=== PATIENT | male | born 1960 | race Caucasian/White ===

== ENCOUNTER 2017-12-07 17:20 | Inpatient (IN) | payer OTHER ==
[~2017-12-07] VITALS: Ht 180.3 cm; Wt 103.0 kg
[~2017-12-07 17:20] MED LIST: K-DUR20 ME2 PO; Z.0.ACCUPRIL40 MG PO; Z.0.LANTUS100 UNIT/1 SQ; Z.0.LASIX40 MG PO; Z.0.METFORMIN HCL850 PO; Z.0.NORVASC5 MG PO; Z.0.VICTOZA 2-0.6 MG SQ
[2017-12-07 19:13] LABS: BASOPHILS # (AUTO) 0.1 (0.0-0.1); BASOPHILS % 1.1 % (0.0-1.0); EOSINOPHILS # (AUTO) 0.1 (0.0-0.4); EOSINOPHILS % 1.5 % (0.0-6.0); HEMOGLOBIN 16.5 g/dL (14.0-18.0); LYMPHOCYTES % 18.3 % (18.0-39.1); MEAN CORPUSCULAR HEMOGLOBIN 31.7 pg (28-32); MEAN CORPUSCULAR HGB CONC 35.1 g/dL (31-35); MEAN CORPUSCULAR VOLUME 90.4 fL (81-99); MONOCYTES # (AUTO) 0.6 (0.2-0.8); MONOCYTES % 10.4 % (4.4-11.3); NEUTROPHILS # (AUTO) 3.7 (2.1-6.9); NEUTROPHILS % 68.3 % (38.7-80.0); PLATELET COUNT 186 x10e3/uL (140-360); RED CELL DISTRIBUTION WIDTH 13.2 % (11.7-14.4)
[2017-12-07 19:26] LABS: ALANINE AMINOTRANSFERASE 99 IU/L (0-55); ALBUMIN 3.6 g/dL (3.5-5.0); ALKALINE PHOSPHATASE 62 IU/L (40-150); BLOOD UREA NITROGEN 8 mg/dL (7-26); BUN/CREATININE RATIO 7 (6-25); CALCIUM 9.1 mg/dL (8.4-10.2); CARBON DIOXIDE 25 mmol/L (22-29); CHLORIDE 95 mmol/L (98-107); CREATININE, SERUM 1.07 mg/dL (0.72-1.25); EST GLOMERULAR FILTRATION RATE > 60 ML/MIN (60-); GLUCOSE 259 mg/dL (74-118); SODIUM 129 mmol/L (136-145)
--- NOTE | 2017-12-07 20:46 | Diagnostic Imaging Report ---
FOOT RIGHT COMPLETE - 3 views HISTORY: Pain. Bilaterally infected right. COMPARISON: None available. FINDINGS: Bones: No acute displaced fracture. Osseous alignment is within normal limits. Plantar calcaneal enthesophyte. Erosive changes of the great toe phalanx. Joints: The joint spaces are well-maintained. Soft tissues: Soft tissue defect in the great toe. IMPRESSION: Erosive changes of the great toe phalanx with overlying soft tissue defect, consistent with osteomyelitis. Signed by: Dr. Dustin Sahu M.D. on 12/07/2017 8:42 PM
[2017-12-07] MEDS ORDERED: CHLORDIAZEPOXIDE HCL 25 MG CAP ONE (22:37)
[2017-12-07] MEDS ORDERED: CHLORDIAZEPOXIDE HCL 25 MG CAP PO ONE (22:45)
[2017-12-07] MEDS ORDERED: PIPER-TAZ 3.375 GM 50 ML IV STA (22:46)
[2017-12-07] MEDS: PIPER-TAZ 3.375 GM 50 ML IV SCH (22:46)
[2017-12-07 22:51] LABS: INR 1.16; PROTHROMBIN TIME 13.9 seconds (11.9-14.5)
[2017-12-07 22:52] LABS: PARTIAL THROMBOPLASTIN TIME 28.1 seconds (23.8-35.5)
[2017-12-07] MEDS ORDERED: ONDANSETRON HCL INJ 2 MG/ML VIAL IV PRN (23:00)
[2017-12-07] MEDS ORDERED: SODIUM CHLORIDE FLUSH 10 ML SYR INJ PRN (23:00)
[2017-12-07] MEDS ORDERED: DEXTROSE 50% SYRINGE 50 ML IV PRN (23:00)
[2017-12-07 23:35] VITALS: BP 154/94
[2017-12-07] MEDS ORDERED: SODIUM CHLORIDE 0.9% 250ML 250 ML ONE (23:52)
[2017-12-08] VITALS (8 sets, daily range): BP systolic 105–154; BP diastolic 72–94
[2017-12-08] MEDS: VANCOMYCIN 1GM/NS 250 ML 250 ML IV SCH ×3 (00:20→22:48)
[2017-12-08] MEDS: PIPER-TAZ 3.375 GM 50 ML IV SCH ×3 (05:48→22:02)
[2017-12-08] MEDS: CHLORDIAZEPOXIDE HCL 25 MG CAP PO SCH ×4 (05:48→17:06)
[2017-12-08 06:03] LABS: BASOPHILS % 0.8 % (0.0-1.0); EOSINOPHILS # (AUTO) 0.1 (0.0-0.4); EOSINOPHILS % 2.7 % (0.0-6.0); HEMATOCRIT 44.7 % (38.2-49.6); HEMOGLOBIN 15.4 g/dL (14.0-18.0); LYMPHOCYTES % 19.3 % (18.0-39.1); MEAN CORPUSCULAR HEMOGLOBIN 31.5 pg (28-32); MEAN CORPUSCULAR HGB CONC 34.5 g/dL (31-35); MEAN CORPUSCULAR VOLUME 91.4 fL (81-99); MONOCYTES # (AUTO) 0.5 (0.2-0.8); MONOCYTES % 9.3 % (4.4-11.3); NEUTROPHILS # (AUTO) 3.5 (2.1-6.9); NEUTROPHILS % 67.5 % (38.7-80.0); PLATELET COUNT 172 x10e3/uL (140-360); RED BLOOD COUNT 4.89 x10e6/uL (4.3-5.7); RED CELL DISTRIBUTION WIDTH 13.4 % (11.7-14.4)
[2017-12-08 06:28] LABS: ALANINE AMINOTRANSFERASE 80 IU/L (0-55); ALBUMIN 3.1 g/dL (3.5-5.0); ALBUMIN/GLOBULIN RATIO 0.9 (0.8-2.0); ALKALINE PHOSPHATASE 59 IU/L (40-150); ANION GAP 11.6 mmol/L (8-16); BLOOD UREA NITROGEN 8 mg/dL (7-26); BUN/CREATININE RATIO 8 (6-25); CALCIUM 8.6 mg/dL (8.4-10.2); CARBON DIOXIDE 25 mmol/L (22-29); CHLORIDE 99 mmol/L (98-107); CREATININE, SERUM 0.95 mg/dL (0.72-1.25); EST GLOMERULAR FILTRATION RATE > 60 ML/MIN (60-); GLUCOSE 169 mg/dL (74-118); POTASSIUM 3.6 mmol/L (3.5-5.1); SODIUM 132 mmol/L (136-145)
[2017-12-08] MEDS ORDERED: INSULIN REGULAR, HUMAN 100 UNIT/1 ML 3ML VIAL SQ SCH (07:30)
[2017-12-08] MEDS: NICOTINE 21 MG/EA PATCH TOP SCH (08:17)
[2017-12-08] MEDS ORDERED: POTASSIUM CHLORIDE 20 MEQ TAB CR PO STA (10:14)
[2017-12-08] MEDS ORDERED: DEXTROSE 50% SYRINGE 50 ML IV PRN (10:15)
[2017-12-08] MEDS ORDERED: SODIUM CHLORIDE 452MG TAB PO ONE (10:30)
--- NOTE | 2017-12-08 11:25 | History and Physical ---
CLINICAL HISTORY: This is a 57-year-old white man known to me from previous evaluation, admitted via the emergency room because of right 1st toe osteomyelitis and cellulitis. This patient is known to have coronary artery disease, status post previous anterior wall myocardial infarction. Additionally, he has alcoholic cardiomyopathy. At the time of cardiac catheterization in 2010, his mid LAD was occluded, diagonal had 80% stenosis, circumflex had sequential 60 and 80% stenosis, OM had 40% stenosis. There were some plaques in the right coronary artery which were crooked and small. He had 3+ mitral regurgitation. Subsequently echocardiogram elsewhere apparently showed ejection fraction had dropped to 20%. Nevertheless, the patient has gone off all his medications, Lasix, metoprolol, and lisinopril apparently because of low blood pressure. He was taking digoxin instead. However, according to him, he has not been taking any medications for approximately 2 months including his Glucophage. He does use this insulin long acting glargine-based 25 units twice a day. He is to take 80 but apparently has decreased his intake. He is a heavy drinker and continues to drink. He also has been smoking for the past 2 years for a total of 17 years of smoking after quitting for a while. He has history of hypertension, hyperlipidemia, but he does not take any medications now since his blood pressure is low. 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 His had severe Alzheimer's. He smokes and drinks. FAMILY HISTORY: Father of myocardial infarction, age 43. Mother had Alzheimer's. Sister in her sleep from sleep apnea or morbid obesity. Another sister is alive with diabetes. REVIEW OF SYSTEMS: Noncontributory. PHYSICAL EXAMINATION GENERAL: He is alert and coherent. VITAL SIGNS: Stable. CARDIAC: Jugular veins are not distended. S1 and S2 were regular. There is no appreciable murmur. LUNGS: Clear. ABDOMEN: Soft. Bowel sounds are present. EXTREMITIES: No cyanosis, clubbing, or edema. He has a nonhealing chronic wound in his right toe, apparently has been ongoing for 1 month with surrounding cellulitis. LABORATORY STUDIES: The x-ray of the foot showed osteomyelitis. IMPRESSIONS 1. Osteomyelitis of the right 1st toe with soft tissue breakdown for approximately a month with surrounding cellulitis. 2. Compensated congestive heart failure, ejection fraction in the range of 20%. In 2011, it was in the range of 35 to 40%. 3. Ischemic and alcoholic cardiomyopathy. 4. Coronary artery disease status post occluded mid left anterior descending artery with additional disease in the distal circumflex as well as diagonal artery. Not evaluated invasively since 2010. 5. Moderately severe mitral regurgitation. 6. Diabetes. 7. Hyperlipidemia. 8. Hypotension with history of hypertension. 9. Noncompliance with medications. 10. Alcoholism with elevated liver function but reportedly liver biopsy was negative for cirrhosis. 11. Hyponatremia related to alcohol abuse. 12. The patient states that he has never had alcohol withdrawal symptoms when he stopped drinking in the past. RECOMMENDATIONS 1. Repeat echocardiogram. If there is evidence of intracardiac thrombus or even if there is not, we will still consider anticoagulation. However, the patient is unlikely to comply and his liver problems does not help. In the past, there was concern about apical mural thrombus. Anticoagulation, however, in this patient may be difficult due to his alcoholism and liver condition. 2. He will require infectious disease and podiatry consultation. The risks from the cardiac standpoint for the planned toe amputation is quite high due to his severe cardiomyopathy. Nevertheless, he appears to be quite compensated and still working. The risks from a cardiac standpoint have been explained to him and understood. All questions were answered. Most likely, we will proceed with toe amputation. Job#: [id number] CF cc:Renan DE LA VEGA DPM
[2017-12-08] MEDS: INSULIN LISPRO 100 UNIT/1 ML 3ML VIAL SQ SCH ×3 (12:23→22:52)
--- NOTE | 2017-12-08 15:42 | Consultation ---
DATE OF CONSULTATION: December 08, 2017 PODIATRY SURGERY CONSULTATION REASON FOR CONSULTATION: Osteomyelitis right hallux. I am covering for Dr. Chandler Melendez. HISTORY OF PRESENT ILLNESS: Patient has been diabetic for many years. He says he has been noncompliant. He has been having daily drinks; so, it has really increased his hemoglobin A1c. He thinks it is probably running at around a 10. He says Dr. Moreland is his cage loader and Dr. Hwang his PCP. He says he has not seen Dr. Hwang in a long time. He usually follows up with Dr. Moreland, but he did miss the last appointment. Patient presented through the emergency room with an infected right hallux. ALLERGIES: NO KNOWN ALLERGIES. MEDICATION: Please refer to MAR. Of interest to this consult are Zosyn and vancomycin. REVIEW OF SYSTEMS: Noncontributory except for a full-thickness ulcer, bone exposed, distal phalanx to the right hallux. LOWER EXTREMITY PHYSICAL EXAMINATION: Pedal pulses are palpable. Capillary filling time is delayed. There is some pedal hair growth. It is scant. Skin is atrophic. Intrinsic-minus type of foot. Full-thickness ulcer to the distal aspect of the right foot with distal phalanx exposed. There are localized erythema and edema. No streaking erythema, no erythema, no ascending lymphangitis. At this point the base is 100% fibrotic. The bone is exposed. The wound appears soft to touch. There is malodor to the area. Protective threshold is absent. X-RAY 3 VIEWS: Erosive changes of the great toe phalanx with overlying soft-tissue defect consistent with osteomyelitis. ASSESSMENT 1. Ulcer grade 3, right hallux. 2. Diabetes with neuropathy. 3. Peripheral vascular disease. 4. History of noncompliance. PLAN: At this point I discussed with patient that he needs an amputation of the right distal phalanx of the hallux. He agrees with this. I discussed with him possible amputation on morning. He will be nonweightbearing. I discussed with him that normal healing times could take 4 to 6 weeks for it to heal. He has to be compliant with his diabetes. He says he is going to stop drinking now. He is going to comply with getting his diabetes under control. I discussed no pressure to the area and compliance with antibiotics. I am tentatively going to put him for surgery for in the morning. He will be n.p.o. on Thursday night. Job#: [id number] EV
--- NOTE | 2017-12-08 16:17 | Diagnostic Imaging Report ---
PROCEDURE: Frontal and lateral views of the chest. COMPARISON: Patients [facility], CT, CTA CHEST W, 09/07/2011, 5:15. INDICATIONS: PREOP AMPUTATION OF 1ST DIGIT TOE FINDINGS: Lines/tubes: None. Lungs: The lungs are mildly hypoinflated. Linear opacity in the right middle lobe likely reflect subsegmental atelectasis. No consolidation or pulmonary edema. Pleura: There is no pleural effusion or pneumothorax. Heart and mediastinum: Stable mild cardiomegaly. Pulmonary vasculature is normal. Bones: No acute bony abnormality. Degenerative changes in the thoracic spine. IMPRESSION: 1. mild cardiomegaly and mildly hypoinflated lungs, without acute cardiopulmonary disease. Jordan Davidson M.D. Dictated by: Jordan Davidson M.D. on 12/08/2017 at 16:20 Electronically approved by: Jordan Davidson M.D. on 12/08/2017 at 16:20
[2017-12-08] MEDS: INSULIN DETEMIR 100 UNIT/ML PEN SQ SCH (17:41)
[2017-12-08] MEDS ORDERED: PNEUMOCOCCAL VACCINE POLYVALENT 23 MCG/0.5 ML VIAL IM ONE (18:30)
--- NOTE | 2017-12-08 19:30 | Consultation ---
DATE OF CONSULTATION: December 08, 2017 REASON FOR CONSULTATION: Osteomyelitis. Thank you, Dr. Canela, for asking me to see this patient. HISTORY: The patient is a 57-year-old man referred for osteomyelitis. He was admitted through the emergency department with cellulitis and osteomyelitis of the right great toe. He presented to the emergency department on December 07, 2017, with black discoloration of the right great toe. The patient sustained a cut of the tip of the right great toe about 1 month ago. The next morning when he woke up, he noted that his puppy had chewed off the skin from the wound. The patient managed himself with hydrogen peroxide soaks and topical antibiotics. Unfortunately, the wound deteriorated with black discoloration of the distal end of the right great toe associated with redness of the right forefoot. The patient denies fever, chills and pain. In the emergency department, he was noted to have a temperature of 98.3 degrees Fahrenheit, pulse 102, respiratory rate 20, blood pressure 156/85. Right foot x-ray showed "erosive changes of the great toe phalanx" with overlying soft tissue defect consistent with osteomyelitis. The patient was evaluated by the podiatry service, and surgery has been planned for . PAST MEDICAL HISTORY: Diabetes mellitus, type 2, hypertension, hyperlipidemia, coronary artery disease, myocardial infarction, mitral regurgitation, alcoholic cardiomyopathy, ejection fraction 20%, and congestive heart failure. PAST SURGICAL HISTORY: Excision of benign duodenal tumor. ALLERGIES: NO KNOWN DRUG ALLERGIES. MEDICATIONS: The current antibiotics are Zosyn 3.375 g IVPB q.8 h. and vancomycin 1 g IVPB q.12 h. IMMUNIZATIONS: The patient had received tetanus vaccination within 10 years. He does not recall receiving pneumococcal vaccination. FAMILY HISTORY: Noncontributory. SOCIAL HISTORY: The patient smokes cigarettes every day and vague about quantity. Has been a chronic smoker with intermittent periods of cessation. Also, he drinks alcohol heavily, but has stopped intermittently in the past. REVIEW OF SYSTEMS: As per HPI. PHYSICAL EXAMINATION GENERAL: No acute distress. VITAL SIGNS: T-max 99.3, pulse 85, respiratory rate 17, blood pressure 122/80, weight 227 pounds. HEENT: Normocephalic. There is no icterus. No injection of conjunctivae. There is no ear or nasal discharge. Moist oral mucosa. No pharyngeal erythema elicited. NECK: Supple. No lymphadenopathy or meningismus. LUNGS: Clear to auscultation bilaterally. HEART: Normal S1 and S2. ABDOMEN: Soft and nontender. EXTREMITIES: There is black discoloration of the distal phalanx of the right great toe with erythema extending from the proximal right great toe to the right forefoot. Dorsalis pedis and posterior tibial pulses are weak to palpation in both feet. There is trace edema of the right foot. There is no edema, clubbing or cyanosis of the rest of the extremities. SKIN: As per extremities. BUDGET EXAMINER: Awake, alert and oriented to person, place and time. There is decreased sensation on examination of the feet bilaterally. Nonfocal. LABORATORY AND DIAGNOSTICS: WBC is 5180, hemoglobin 15.4 and platelets 173,000. Neutrophils 67.5, lymphs 19.3, monos 9.3, eosinophils 2.7, basophils 0.8. BUN 8, creatinine 0.95, AST 55, ALT 80, alk phos 59, total bilirubin 1.1, blood glucose 149. IMPRESSION 1. Diabetic foot infection present on admission. 2. Cellulitis of the right great toe present on admission. 3. Osteomyelitis of the distal phalanx of the right great toe present on admission. 4. Abnormal liver enzymes. 5. Questionable of peripheral arterial disease. 6. Alcoholic cardiomyopathy. 7. Tobacco use disorder. 8. Alcohol abuse. PLAN 1. I agree with planned surgery. 2. Check wound culture and arterial Doppler ultrasound if not yet done. 3. Continue current antibiotics and administer Pneumovax. Prevnar 13 is not available at this facility. 4. Smoking cessation counseling has been provided to the patient and the patient is currently on nicotine gum. Also, the patient has been counseled to quit drinking alcohol. Job#: [id number] JO ANN
[2017-12-09] VITALS (7 sets, daily range): BP systolic 108–153; BP diastolic 74–99
[2017-12-09] MEDS: CHLORDIAZEPOXIDE HCL 25 MG CAP PO SCH ×5 (00:31→20:48)
[2017-12-09] MEDS: PIPER-TAZ 3.375 GM 50 ML IV SCH ×3 (06:13→23:02)
[2017-12-09 07:05] LABS: ALANINE AMINOTRANSFERASE 70 IU/L (0-55); ALBUMIN 2.9 g/dL (3.5-5.0); ALBUMIN/GLOBULIN RATIO 0.9 (0.8-2.0); ALKALINE PHOSPHATASE 51 IU/L (40-150); ANION GAP 11.8 mmol/L (8-16); BLOOD UREA NITROGEN 10 mg/dL (7-26); BUN/CREATININE RATIO 10 (6-25); CALCIUM 8.8 mg/dL (8.4-10.2); CARBON DIOXIDE 26 mmol/L (22-29); CHLORIDE 103 mmol/L (98-107); EST GLOMERULAR FILTRATION RATE > 60 ML/MIN (60-); GLUCOSE 107 mg/dL (74-118); POTASSIUM 3.8 mmol/L (3.5-5.1); SODIUM 137 mmol/L (136-145)
[2017-12-09] MEDS: INSULIN LISPRO 100 UNIT/1 ML 3ML VIAL SQ SCH ×4 (07:30→21:00)
[2017-12-09] MEDS: NICOTINE 21 MG/EA PATCH TOP SCH ×2 (09:00→14:22)
[2017-12-09] MEDS: INSULIN DETEMIR 100 UNIT/ML PEN SQ SCH ×2 (09:00→16:51)
[2017-12-09] MEDS: VANCOMYCIN 1GM/NS 250 ML 250 ML IV SCH ×2 (10:15→21:16)
[2017-12-09] MEDS: QUINAPRIL HCL 20 MG TAB PO SCH (15:46)
[2017-12-09] MEDS: AMLODIPINE BESYLATE 5 MG TAB PO SCH (15:47)
[2017-12-10] VITALS (10 sets, daily range): BP systolic 115–139; BP diastolic 71–97
[2017-12-10] MEDS: PIPER-TAZ 3.375 GM 50 ML IV SCH ×3 (05:42→20:58)
[2017-12-10] MEDS: CHLORDIAZEPOXIDE HCL 25 MG CAP PO SCH ×4 (06:00→20:58)
[2017-12-10] MEDS ORDERED: BUPIVACAINE HCL 0.5% INJ 30 ML VIAL INJ ONE (06:35)
[2017-12-10] MEDS ORDERED: NEOSTIGMINE 1 MG/ML 10ML VIAL ONE (06:35)
[2017-12-10] MEDS: INSULIN LISPRO 100 UNIT/1 ML 3ML VIAL SQ SCH ×4 (07:30→21:00)
[2017-12-10] MEDS ORDERED: BACITRACIN 50,000 UNIT VIAL ONE (08:39)
[2017-12-10] MEDS: INSULIN DETEMIR 100 UNIT/ML PEN SQ SCH ×2 (09:00→16:27)
--- NOTE | 2017-12-10 09:26 | Cardiology Report ---
DATE OF STUDY: ECHOCARDIOGRAM M-MODE: Dilated left atrium and left ventricle. Severely diminished left ventricular contractility. [place] appears to be akinetic. Mitral and aortic valves are grossly normal. There is no pericardial effusion. SECTOR SCAN: Dilated left atrium and right ventricle. Severely diminished left ventricular contractility. [place] is akinetic. Mitral, aortic and tricuspid valves are grossly normal. There is no pericardial effusion. CARDIAC DOPPLER STUDY WITH COLOR: Trace mitral, pulmonic and tricuspid regurgitation. CONCLUSION 1. Dilated left ventricle with severely diminished left ventricular contractility with apex akinetic. Ejection fraction is approximately 20%. 2. Trace mitral regurgitation with dilated left atrium. 3. Trace tricuspid and pulmonic regurgitation. 4. Suboptimal study. Job#: [id number] RI
--- NOTE | 2017-12-10 09:30 | Cardiology Report ---
DATE OF STUDY: DOPPLER SCAN OF LOWER EXTREMITY ARTERIES The lower extremity arteries bilaterally showed triphasic and biphasic waveforms throughout. Velocity is elevated in the midleft posterior tibial artery at 3.3 meters per second consistent with high-grade stenosis. CONCLUSION 1. High-grade stenosis involving the midleft posterior tibial artery with velocity of 3.3 meters per second. 2. No high-grade stenosis elsewhere bilaterally in the major arteries of the lower extremities. Job#: [id number] RI cc:RONAL MONTGOMERY MD
--- NOTE | 2017-12-10 09:54 | Operative Report ---
DATE OF PROCEDURE: December 08, 2017 STOGIE PACKER: None PREOPERATIVE DIAGNOSIS: Osteomyelitis, right distal phalanx. POSTOPERATIVE DIAGNOSIS: Osteomyelitis, right distal phalanx. PROCEDURES 1. Amputation of distal phalanx, right foot. 2. Application of posterior splint. PATHOLOGY: Culture and sensitivity of the bone and tissue sent for pathology. ANESTHESIA: Local anesthesia with MAC. HEMOSTASIS: None. ESTIMATED BLOOD LOSS: 10 mL. MATERIALS: None. INJECTABLES: 0.5% Marcaine plain given preop. COMPLICATIONS: None. CONDITION: Stable. PROCEDURE IN DETAIL: Under mild sedation, the patient was brought to the operating room and placed on the operating table in the supine position. Following IV sedation, IV anesthesia was obtained. At this point, the right foot was scrubbed, prepped and draped in the usual aseptic manner. The leg was then lowered to the table. Attention was then directed to the dorsal aspect of the right foot where the bone at the distal phalanx was exposed. At this point, utilizing sharp technique, the IPJ was removed. Culture and sensitivity of the bone were taken and was sent for pathology. At this point, a plantar flap was then used to close the area after copious irrigation with Bacitracin. The flap was then closed with 4-0 nylon. Ointment, Adaptic, 4 x 4's, Kerlix, Webril, and posterior splint was applied, and was secured utilizing an Juan bandage. The patient tolerated the procedure and anesthesia well without complications. The patient was transported back to stepdown unit. He will return back to his room. At this point, he is not weightbearing to the lower extremity. I discussed with his compliance. I have counseled him on the use of alcohol use. He is aware that this is going to impair his healing if he continues to drink and not compliant with his diabetes management. If discharged, he will follow up in the office. Plan to change the dressing in about 3-5 days. Job#: [id number] CA
[2017-12-10] MEDS: NICOTINE 21 MG/EA PATCH TOP SCH (10:00)
[2017-12-10] MEDS: VANCOMYCIN 1GM/NS 250 ML 250 ML IV SCH ×2 (10:15→22:28)
[2017-12-10] MEDS: AMLODIPINE BESYLATE 5 MG TAB PO SCH ×2 (11:30→16:26)
[2017-12-10] MEDS: POTASSIUM CHLORIDE 20 MEQ TAB CR PO SCH (11:30)
[2017-12-10] MEDS: FUROSEMIDE 40 MG TAB PO SCH (11:30)
[2017-12-10] MEDS: QUINAPRIL HCL 20 MG TAB PO SCH (11:30)
[2017-12-10] MEDS ORDERED: NON-FORMULARY MEDICATION (Quinapril Hcl (Accupril) 40 MG) PO SCH (15:45)
[2017-12-10] MEDS ORDERED: PROPOFOL IV EMULSION 10 MG/ML 20 ML VIAL ONE (16:23)
[2017-12-10] MEDS ORDERED: GLYCOPYRROLATE INJ 1MG/ 5 ML SYR ONE (16:23)
[2017-12-10] MEDS ORDERED: LIDOCAINE HCL 2% LOCAL INJ 5 ML SDV VIAL INJ ONE (16:23)
[2017-12-10] MEDS ORDERED: KETAMINE HCL INJ 50 MG/ML 10 ML VIAL ONE (17:53)
[2017-12-10] MEDS ORDERED: MIDAZOLAM HCL 2 MG/2 ML VIAL ONE (17:53)
[2017-12-10] MEDS ORDERED: FENTANYL CITRATE/PF 100MCG/2 ML INJ ONE (17:53)
[2017-12-11 04:10] VITALS: BP 109/74
[2017-12-11] MEDS: CHLORDIAZEPOXIDE HCL 25 MG CAP PO SCH ×3 (05:01→17:24)
[2017-12-11] MEDS ORDERED: SODIUM CHLORIDE 0.9% 250ML 250 ML ONE (05:03)
[2017-12-11] MEDS: PIPER-TAZ 3.375 GM 50 ML IV SCH ×2 (05:10→14:00)
[2017-12-11] MEDS: INSULIN LISPRO 100 UNIT/1 ML 3ML VIAL SQ SCH ×3 (07:30→16:30)
[2017-12-11 08:00] VITALS: BP 141/91
[2017-12-11] MEDS: POTASSIUM CHLORIDE 20 MEQ TAB CR PO SCH (09:00)
[2017-12-11] MEDS: QUINAPRIL HCL 20 MG TAB PO SCH (09:00)
[2017-12-11] MEDS: FUROSEMIDE 40 MG TAB PO SCH (09:00)
[2017-12-11] MEDS: AMLODIPINE BESYLATE 5 MG TAB PO SCH ×2 (09:00→17:00)
[2017-12-11] MEDS: INSULIN DETEMIR 100 UNIT/ML PEN SQ SCH ×2 (09:00→16:37)
[2017-12-11] MEDS: NICOTINE 21 MG/EA PATCH TOP SCH (09:00)
[2017-12-11] MEDS: VANCOMYCIN 1GM/NS 250 ML 250 ML IV SCH (10:15)
--- NOTE | 2017-12-11 11:00 | Discharge Summary ---
CLINICAL HISTORY: This is a 57-year-old white man known to me from previous evaluation admitted via the emergency room because of right 1st toe osteomyelitis and cellulitis. Please refer to my previous dictation concerning details of current illness, past medical history, personal and social history, family history, review of systems, physical examination, initial laboratory studies. HOSPITAL COURSE: The patient was seen in consultation by infectious disease diet consultant, Dr. Meño Mcclure and by podiatry, Dr. Jamee Arriaga. Surgery was recommended and was carried out without difficulties under MAC and local anesthesia. His ejection fraction was 25% by echo making him high risk. His is known to have coronary artery disease, as well as possible alcoholic cardiomyopathy. The cultures grew MRSA and E. coli. The patient was treated with vancomycin, piperacillin/tazobactam combination. He never had fever or elevated white count with white count around 5000 range. He is anxious to go home. He is discharged with approval of infectious disease and podiatry to be followed on an outpatient basis. Antibiotic outpatient coverage will be given by Dr. Meño Mcclure. DISCHARGE DIAGNOSES 1. Osteomyelitis and cellulitis on the right 1st toe successfully treated with toe amputation under local anesthesia and monitored anesthesia care, and with intravenous antibiotics using vancomycin and piperacillin and tazobactam. Bacteria was methicillin-resistant Staphylococcus aureus/Escherichia coli. 2. Compensated congestive heart failure with ejection fraction of 25% with previous ejection fraction in 2010 of 35% to 40%. 3. Ischemic and alcoholic cardiomyopathy. 4. Coronary artery disease, status post occluded midleft ventricular descending coronary artery with additional disease in the distal circumflex and diagonal artery treated medically since 2010. 5. Moderately severe mitral regurgitation. 6. Diabetes. 7. Hyperlipidemia. 8. Hypotension. 9. Noncompliance with medications and followup. 10. Alcoholism with elevated liver function with AST of 71, ALT of 99. 11. Hyponatremia due to alcoholism with original sodium 129. At discharge, sodium was 137. 12. No evidence of alcohol withdrawal as the patient had predicted when he stops drinking alcohol. LORENA CLINE MD Job#: [id number] VT cc:CLAIR STONER M.D.
[2017-12-11 12:00] VITALS: BP 118/81
[2017-12-11 16:00] VITALS: BP 100/64
[2017-12-11] MEDS ORDERED: BACTRIM DS TAB1 EACH PO (16:47)
== END 2017-12-11 18:37 | disposition home or self-care (01) | DRG 617 ==
LOC: ER 17:20 → ERHOLD 22:55 → MED/SURG2 23:41
PROVIDERS: ADMIT Internal Medicine Cardiovascular Disease; ATTEND Internal Medicine Cardiovascular Disease
PROC: 0Y6P0Z3 Detachment at Right 1st Toe, Low, Open Approach (ICD-10-PCS; principal; 2017-12-10 08:00)
DX: E11.621 Type 2 diabetes mellitus with foot ulcer (principal); E87.1 Hypo-osmolality and hyponatremia; L97.516 Non-pressure chronic ulcer of other part of right foot with bone involvement without evidence of necrosis; M86.671 Other chronic osteomyelitis, right ankle and foot; L03.115 Cellulitis of right lower limb; I42.6 Alcoholic cardiomyopathy; E11.69 Type 2 diabetes mellitus with other specified complication; I50.9 Heart failure, unspecified; I25.10 Atherosclerotic heart disease of native coronary artery without angina pectoris; E86.0 Dehydration; E11.40 Type 2 diabetes mellitus with diabetic neuropathy, unspecified; B96.20 Unspecified Escherichia coli [E. coli] as the cause of diseases classified elsewhere; B95.62 Methicillin resistant Staphylococcus aureus infection as the cause of diseases classified elsewhere; Z79.4 Long term (current) use of insulin; I25.2 Old myocardial infarction; I25.5 Ischemic cardiomyopathy; I34.0 Nonrheumatic mitral (valve) insufficiency; E66.01 Morbid (severe) obesity due to excess calories; I95.9 Hypotension, unspecified; Z91.19 Patient's noncompliance with other medical treatment and regimen; F10.20 Alcohol dependence, uncomplicated; F17.210 Nicotine dependence, cigarettes, uncomplicated; E78.5 Hyperlipidemia, unspecified; Z68.31 Body mass index [BMI] 31.0-31.9, adult
CPT/HCPCS: 36415; 71046; 80053; 82948; 83605; 85025; 85610; 85730; 87040; 87071; 87075; 87186; 87205; 88304; 88305; 88311; 93005; 93306; 93925; 97139; 99284; J2001; J2250; J2543; J2710; J3370; J7050

== ENCOUNTER 2018-01-04 14:04 | Inpatient (IN) | payer OTHER ==
[~2018-01-04] VITALS: Ht 180.3 cm; Wt 106.6 kg
[~2018-01-04 14:04] MED LIST changes: +BACTRIM DS TAB1 EACH PO
[2018-01-04] MEDS ORDERED: ACETAMINOPHEN 325 MG TAB PO STA (14:30)
[2018-01-04] MEDS ORDERED: LORAZEPAM INJ 2 MG/ML VIAL IV STA (14:38)
[2018-01-04] MEDS ORDERED: VANCOMYCIN 1GM/NS 250 ML 250 ML IV STA (14:44)
[2018-01-04 14:45] LABS: BASOPHILS % 0.2 % (0.0-1.0); EOSINOPHILS % 0.1 % (0.0-6.0); HEMATOCRIT 37.3 % (38.2-49.6); HEMOGLOBIN 13.4 g/dL (14.0-18.0); LYMPHOCYTES # (AUTO) 0.6 (1.0-3.2); LYMPHOCYTES % 4.7 % (18.0-39.1); MEAN CORPUSCULAR HEMOGLOBIN 31.1 pg (28-32); MEAN CORPUSCULAR HGB CONC 35.9 g/dL (31-35); MEAN CORPUSCULAR VOLUME 86.5 fL (81-99); MONOCYTES # (AUTO) 1.2 (0.2-0.8); MONOCYTES % 9.8 % (4.4-11.3); NEUTROPHILS # (AUTO) 10.4 (2.1-6.9); NEUTROPHILS % 84.5 % (38.7-80.0); PLATELET COUNT 155 x10e3/uL (140-360); RED BLOOD COUNT 4.31 x10e6/uL (4.3-5.7); RED CELL DISTRIBUTION WIDTH 13.2 % (11.7-14.4)
[2018-01-04 15:02] LABS: ALANINE AMINOTRANSFERASE 30 IU/L (0-55); ALBUMIN 2.9 g/dL (3.5-5.0); ALBUMIN/GLOBULIN RATIO 0.7 (0.8-2.0); ALKALINE PHOSPHATASE 63 IU/L (40-150); ANION GAP 18.7 mmol/L (8-16); BLOOD UREA NITROGEN 10 mg/dL (7-26); BUN/CREATININE RATIO 11 (6-25); CALCIUM 8.9 mg/dL (8.4-10.2); CARBON DIOXIDE 20 mmol/L (22-29); CHLORIDE 87 mmol/L (98-107); CREATININE, SERUM 0.87 mg/dL (0.72-1.25); EST GLOMERULAR FILTRATION RATE > 60 ML/MIN (60-); GLUCOSE 131 mg/dL (74-118); POTASSIUM 3.7 mmol/L (3.5-5.1); SODIUM 122 mmol/L (136-145)
--- NOTE | 2018-01-04 15:37 | Diagnostic Imaging Report ---
PROCEDURE:X-RAY RIGHT FOOT, COMPLETE COMPARISON:12/07/17 INDICATIONS:OSTEOMYELITIS, RIGHT GREAT TOE INFECTION FINDINGS: Status post right great toe amputation at the level of distal interphalangeal joint. Mild soft tissue swelling and minimal emphysema at the surgical site. Mild soft tissue swelling of dorsal forefoot. No acute fracture or dislocation. Small plantar calcaneal enthesophyte. No periosteal reaction or erosion on today's exam. CONCLUSION: Postsurgical changes of right great toe amputation at the level of interphalangeal joint. Dictated by: Flash Fletcher M.D. on 01/04/2018 at 15:42 Electronically approved by: Flash Fletcher M.D. on 01/04/2018 at 15:42
--- NOTE | 2018-01-04 15:44 | Diagnostic Imaging Report ---
PROCEDURE: Frontal and lateral views of the chest. COMPARISON: 12/08/17 INDICATIONS: OSTEOMYELITIS, RIGHT GREAT TOE INFECTION FINDINGS: Lines/tubes: None. Lungs: Limited by low lung volumes and body habitus. Mild central vascular congestion, accentuated by low lung volumes. Pleura: There is no pleural effusion or pneumothorax. Heart and mediastinum: The cardiac silhouette is enlarged, accentuated by low lung volumes. Bones: No acute bony abnormality. Degenerative changes of thoracic spine. IMPRESSION: Very limited study due to low lung volumes and body habitus. Enlarged cardiac silhouette and mild central vascular congestion, accentuated by low lung volumes. Dictated by: Flash Fletcher M.D. on 01/04/2018 at 15:48 Electronically approved by: Flash Fletcher M.D. on 01/04/2018 at 15:48
[2018-01-04] MEDS ORDERED: PIPER-TAZ 3.375 GM 50 ML IV NR (16:30)
[2018-01-04] MEDS ORDERED: PIPER-TAZ 3.375 GM 50 ML IV SCH (18:00)
[2018-01-04] MEDS: SODIUM CHLORIDE 0.9% 1000ML 1,000 ML IV SCH (18:00)
[2018-01-04] MEDS ORDERED: VANCOMYCIN 1GM/NS 250 ML 250 ML IV SCH (18:00)
[2018-01-04] MEDS ORDERED: DEXTROSE 50% SYRINGE 50 ML IV PRN (18:15)
[2018-01-04] MEDS ORDERED: SODIUM BICARBONATE 8.4% INJ 50 ML SYR IV NR (18:16)
--- NOTE | 2018-01-04 19:07 | History and Physical ---
CLINICAL HISTORY: This is a 57-year-old white man known to me from previous evaluations admitted via the emergency room because of recurrent right toe cellulitis extending into the foot. This patient was hospitalized 12/07/2017 with osteomyelitis and cellulitis of the 1st toe. He underwent successful toe amputation by Dr. Arriaga and was seen by Dr. Meño Mcclure of infectious disease. He was released on oral antibiotics to be taken for 20 days, on 12/10/17. However, the patient states that for at least 10 days he has not been taking any antibiotics. He says he has seen Dr. Arriaga twice and she was satisfied with his healing. Additionally, home health has been coming twice a week to his home and changed the bandage apparently without noticing any problems. Two days prior to admission he noticed a small pimple in the right toe and then this morning he noticed it was infected. He denies any fever or chills. He decided to come to the emergency room and was found to have fulminant infection with abscess drainage. He is being admitted for further evaluation and treatment. PAST MEDICAL HISTORY: Remarkable for coronary artery disease and cardiac catheterization in 2010 showed occluded mid LAD with collaterals, 80% proximal diagonal artery stenosis and 80% distal circumflex stenosis. Ejection fraction was 40% and prior to that his ejection fraction has been as low as 20%, thought to be due to alcohol as well as ischemic cardiomyopathy. He has history of diabetes, hypertension, hypotension, hyperlipidemia and noncompliance as well as moderate mitral regurgitation which may be exacerbated by catheter positioning. HOME MEDICATIONS: Amlodipine 5 mg b.i.d., (?) lisinopril, (?) digoxin, metformin as well as metoprolol succinate, Lasix and potassium. PERSONAL/SOCIAL HISTORY: He is a heavy drinker, 10-20 beers per day. He continues to smoke 1 to 2 packs per day. 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 His lives at home with severe Alzheimer disease. He has a full-time live-in aide. FAMILY HISTORY: Father from myocardial infarction at age 43. Mother had Alzheimer disease. Sister in her sleep from sleep apnea and morbid obesity. Another sister is alive with diabetes. REVIEW OF SYSTEMS: Noncontributory. PHYSICAL EXAMINATION: VITAL SIGNS: Stable. Temperature high was 100.3 at the time of presentation. Blood pressure 135/75, pulse oximetry 98%. Pulse 117. CARDIOVASCULAR: Jugular veins are not distended. S1 and S2 were regular. There no appreciable murmurs. RESPIRATORY: Clear. ABDOMEN: Soft. Bowel sounds present. EXTREMITIES: No cyanosis, clubbing or edema. LABORATORY STUDIES: White count 4300, hemoglobin 13.4, platelet count 155,000. Sodium is 122. Potassium 3.7. Bicarb 20. BUN 10. Creatinine 0.82, albumin 2.9, lactic acid 13.3. Bilirubin 2.0. Albumin 2.9. IMPRESSION: 1. Severe cellulitis with drainage, possible recurrent osteomyelitis, possible abscess. Status post amputation around 11/2017. 2. Problem of medication noncompliance. 3. Alcoholism. 4. Cigarette smoking. 5. History of alcoholic and ischemic cardiomyopathy with ejection fraction in the range of 20%, most recently 35% to 40%. 6. Coronary artery disease with cardiac catheterization in 2010 showing occluded mid LAD with 80% diagonal artery stenosis and 80% distal circumflex stenosis, treated medically. 7. Moderately severe mitral regurgitation. 8. Diabetes. 9. Hypertension. 10. History of hypotension. 11. Elevated bilirubin 2.0 related to alcohol abuse. 12. Hyponatremia related to alcohol usage. RECOMMENDATIONS: Podiatry consultation with Dr. Arriaga. Infectious disease consultation with Dr. Meño Mcclure. This patient may require a more prolonged hospitalization at this time. Job#: [id number] cc:CLAIR STONER MD
[2018-01-04 20:00] VITALS: BP 130/75
[2018-01-04] MEDS: INSULIN LISPRO 100 UNIT/1 ML 3ML VIAL SQ SCH (20:56)
[2018-01-04] MEDS: AMLODIPINE BESYLATE 5 MG TAB PO SCH (21:05)
[2018-01-04] MEDS: PIPER-TAZ 3.375 GM 50 ML IV SCH (23:41)
[2018-01-05] VITALS (7 sets, daily range): BP systolic 112–174; BP diastolic 66–79
[2018-01-05] MEDS: MORPHINE SULFATE 2 MG/ML SYR IV PRN ×2 (01:17→22:50)
[2018-01-05] MEDS: CHLORDIAZEPOXIDE HCL 25 MG CAP PO PRN ×2 (01:18→14:41)
[2018-01-05] MEDS: ONDANSETRON HCL INJ 2 MG/ML VIAL IV PRN ×2 (01:18→22:50)
[2018-01-05] MEDS: VANCOMYCIN 1GM/NS 250 ML 250 ML IV SCH ×2 (03:42→16:00)
[2018-01-05 04:30] LABS: BASOPHILS % 0.4 % (0.0-1.0); EOSINOPHILS # (AUTO) 0.1 (0.0-0.4); EOSINOPHILS % 0.9 % (0.0-6.0); HEMATOCRIT 34.3 % (38.2-49.6); HEMOGLOBIN 12.2 g/dL (14.0-18.0); LYMPHOCYTES # (AUTO) 0.8 (1.0-3.2); MEAN CORPUSCULAR HGB CONC 35.6 g/dL (31-35); MEAN CORPUSCULAR VOLUME 87.3 fL (81-99); MONOCYTES % 10.4 % (4.4-11.3); NEUTROPHILS # (AUTO) 7.6 (2.1-6.9); NEUTROPHILS % 79.6 % (38.7-80.0); PLATELET COUNT 158 x10e3/uL (140-360); RED BLOOD COUNT 3.93 x10e6/uL (4.3-5.7); RED CELL DISTRIBUTION WIDTH 13.2 % (11.7-14.4)
[2018-01-05 04:51] LABS: ALANINE AMINOTRANSFERASE 26 IU/L (0-55); ALBUMIN 2.4 g/dL (3.5-5.0); ALBUMIN/GLOBULIN RATIO 0.6 (0.8-2.0); ALKALINE PHOSPHATASE 55 IU/L (40-150); ANION GAP 14.7 mmol/L (8-16); BLOOD UREA NITROGEN 11 mg/dL (7-26); BUN/CREATININE RATIO 13 (6-25); CALCIUM 8.4 mg/dL (8.4-10.2); CARBON DIOXIDE 23 mmol/L (22-29); CHLORIDE 93 mmol/L (98-107); CREATININE, SERUM 0.83 mg/dL (0.72-1.25); EST GLOMERULAR FILTRATION RATE > 60 ML/MIN (60-); GLUCOSE 186 mg/dL (74-118); POTASSIUM 3.7 mmol/L (3.5-5.1); SODIUM 127 mmol/L (136-145)
[2018-01-05] MEDS: PIPER-TAZ 3.375 GM 50 ML IV SCH ×3 (05:25→18:46)
[2018-01-05] MEDS: INSULIN LISPRO 100 UNIT/1 ML 3ML VIAL SQ SCH ×4 (08:00→21:02)
[2018-01-05] MEDS ORDERED: ACETAMINOPHEN 325 MG TAB PO ONE (08:00)
[2018-01-05] MEDS: AMLODIPINE BESYLATE 5 MG TAB PO SCH ×2 (08:45→17:18)
[2018-01-05] MEDS: POTASSIUM CHLORIDE 20 MEQ TAB CR PO SCH (08:45)
[2018-01-05] MEDS: FUROSEMIDE 40 MG TAB PO SCH (08:45)
[2018-01-05] MEDS: METFORMIN HCL 850 MG TAB PO SCH (08:45)
--- NOTE | 2018-01-05 11:37 | Consultation ---
DATE OF CONSULTATION: January 05, 2018 INFECTIOUS DISEASE CONSULTATION ATTENDING PHYSICIAN: Matt Canela MD REASON FOR CONSULTATION: Right foot cellulitis. Thank you, Dr. Canela, for asking me to see this patient. HISTORY: The patient is a 57-year-old man referred for right foot cellulitis. He presented to the emergency department with right foot redness and swelling for 2 days. The patient was admitted last month with right diabetic foot infection with osteomyelitis of the distal phalanx of the right great toe. He successfully underwent an amputation of the distal phalanx of the right great toe on 12/10/2017. The wound culture grew methicillin-resistant Staphylococcus aureus and Escherichia coli. The patient improved with management and was successfully discharged to home on Bactrim DS. He stated that he completed the antibiotic as prescribed and was responding to local wound care until 2 days prior to admission when he noted slight redness. When the home health nurse came back to him yesterday, the right foot was swollen and markedly red with drainage. The patient did not feel pain or feverish. In the emergency room, he was noted to have temperature of 100.3 degrees Fahrenheit, pulse 117, respiratory rate 22 and blood pressure 135/73. Initial laboratory studies showed blood leukocyte count of 12,300 with 84.5% neutrophils and blood glucose 220. Right foot x-ray showed postsurgical changes of the right great toe at the level of the interphalangeal joint. PAST MEDICAL HISTORY: Diabetes mellitus type 2, hypertension, hyperlipidemia, coronary artery disease, myocardial infarction, mitral regurgitation, alcoholic cardiomyopathy (ejection fraction 20%) and congestive heart failure. PAST SURGICAL HISTORY: Excision of benign duodenal tumor. ALLERGIES: NO KNOWN DRUG ALLERGIES. MEDICATIONS: The current antibiotics are Zosyn 3.375 grams IV piggyback q.6 h. and Bactrim 1 gram IV piggyback q.12 h. IMMUNIZATIONS: Patient has received a tetanus vaccine within 10 years. FAMILY HISTORY: Noncontributory. SOCIAL HISTORY: Patient smokes cigarettes every day and vague about the quantity. He has been a chronic smoker with intermittent periods of cessation. Also, he drinks alcohol daily but has stopped intermittently in the past. REVIEW OF SYSTEMS: As per history of present illness. PHYSICAL EXAMINATION VITAL SIGNS: T-max 100.3, pulse 89, respiratory rate 16, blood pressure 119/66, weight 227 pounds. GENERAL: No acute distress. HEENT: Normocephalic. There is no icterus or injection of conjunctivae. There is no ear or nasal discharge. Moist oral mucosa. No pharyngeal erythema or exudate. NECK: Supple. No lymphadenopathy or meningismus. LUNGS: Good air entry bilaterally. HEART: Normal S1 and S2, regular. ABDOMEN: Soft, nontender. EXTREMITIES: There is amputation of the distal phalanx of the right great toe with black discoloration at the suture line and pus at the proximal aspect. There are erythema and edema of the right foot extending medially to the lower third of the right leg. The dorsalis pedis and posterior tibial pulses are weak to palpation. SKIN: As per extremities. GLASS CUTTER: Awake, alert and oriented to person, place and time. There is decreased sensation on monofilament examination of the feet bilaterally. Nonfocal. LABORATORY AND DIAGNOSTICS: WBC 9610, hemoglobin 12.2, platelets 158,000, neutrophils 79.6, lymphs 8, monos 10.4, eosinophils 0.9, basophils 0.4, BUN 11, creatinine 0.83, blood glucose 193. Blood culture collected in the emergency room is pending. IMPRESSION 1. Right diabetic foot infection/abscess. 2. Cellulitis of right foot. 3. Peripheral arterial disease. 4. Diabetes mellitus, type 2, uncontrolled. 5. Alcoholic cardiomyopathy. 6. Tobacco use disorder. 7. Alcohol abuse. PLAN 1. Check right great toe pus aspirate culture and sensitivity. 2. Await podiatry consult. 3. Continue current antibiotics. 4. Smoking cessation counseling was provided to patient. Job#: [id number]
[2018-01-05] MEDS: SODIUM CHLORIDE 0.9% 1000ML 1,000 ML IV SCH (13:30)
[2018-01-05] MEDS: NICOTINE 14 MG/EA PATCH TOP SCH (14:41)
[2018-01-05] MEDS ORDERED: ACETAMINOPHEN 325 MG TAB PO PRN (16:15)
[2018-01-06] VITALS (7 sets, daily range): BP systolic 106–152; BP diastolic 61–89
[2018-01-06] MEDS: PIPER-TAZ 3.375 GM 50 ML IV SCH ×4 (00:30→17:04)
[2018-01-06] MEDS: VANCOMYCIN 1GM/NS 250 ML 250 ML IV SCH ×2 (02:28→14:25)
[2018-01-06] MEDS: METFORMIN HCL 850 MG TAB PO SCH (08:05)
[2018-01-06] MEDS: POTASSIUM CHLORIDE 20 MEQ TAB CR PO SCH (08:06)
[2018-01-06] MEDS: NICOTINE 14 MG/EA PATCH TOP SCH (08:06)
[2018-01-06] MEDS: AMLODIPINE BESYLATE 5 MG TAB PO SCH ×2 (08:06→17:04)
[2018-01-06] MEDS: FUROSEMIDE 40 MG TAB PO SCH (08:06)
[2018-01-06] MEDS: INSULIN LISPRO 100 UNIT/1 ML 3ML VIAL SQ SCH ×4 (08:07→21:00)
[2018-01-06] MEDS: CHLORDIAZEPOXIDE HCL 25 MG CAP PO PRN ×2 (08:13→19:26)
[2018-01-06] MEDS: SODIUM CHLORIDE 0.9% 1000ML 1,000 ML IV SCH ×2 (09:30→14:26)
--- NOTE | 2018-01-06 10:05 | Consultation ---
DATE OF CONSULTATION: January 06, 2018 HISTORY: This is a patient known to me who has been seeing me in my clinic for the past 3 weeks. He is an alcoholic who has been attempting to quit. When I have seen him in the office and I asked him about it, he says he is trying, but he continues to return to it. He has been somewhat noncompliant. He has been ambulating on the lower extremity, but then he rented a scooter and he began to get off the lower extremity. He was having home health 2 to 3 times a week. I saw him last week, the wound was healing slowly, but it was healing fine. There were no signs of infection. Edges were coapting. Somewhere from the time of last week to now, he developed an abscess, and he came in through the emergency room. He did admit that he had not been taking any of the antibiotics, so he suspects he might need a PICC line because he is not 100% compliant. PAST MEDICAL HISTORY: CAD, alcoholism, diabetes, hypertension, hyperlipidemia, history of noncompliance. MEDICATIONS: Please refer to MAR. Of interest to this consult are adina and Carlos. SOCIAL HISTORY: He is an alcoholic, he admits to it. He also smokes about 2 packs a day. 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 He lives at home with his . He is the main caregiver and she has Alzheimer's disease. REVIEW OF SYSTEMS: Noncontributory except for right foot cellulitis with possible abscess. LOWER EXTREMITY PHYSICAL EXAMINATION: Erythema and edema extends to about the midfoot. The patient states that it was extending to about past the ankle towards the knee. It is beginning to localize. There is malodor to the area. Erythema and edema are consistent with cellulitis. Not a true palpable abscess was felt. The sutures are intact. The plantar aspect of the wound has become necrotic probably secondary to the infection. Pedal pulses are diminished. Capillary filling time is delayed. Intrinsic minus type of foot. LABORATORY DATA: The x-ray is negative for osteomyelitis. White blood count, it is trending down, it began at 12.3, it is going down to 9.6. Neutrophils are also trending down 84.5 to 79.6. ASSESSMENT: 1. Diabetic foot ulcer, grade 2. 2. Cellulitis, possible abscess. 3. History of noncompliance. 4. Peripheral vascular disease and neuropathy. 5. Alcoholism. PLAN: I discussed with the patient that at this point I would like for him to continue on IV antibiotics. I am going to order an MRI as to rule out a drainable abscess. If it is drainable, I will drain it either tomorrow or Thursday. I have also discussed with him that I am going to recommend IV antibiotic. I think at this point secondary to the noncompliance the patient would not be a better candidate for a long-term acute facility. He has failed outpatient. He knows that he is a high risk for amputation. He stated to me that at this point he is going to stop drinking and smoking and he is going to compliance as he does not want to lose any part of his lower extremity. He is a high-risk candidate for surgery. So at this point, I discussed with him that if IV antibiotic and local wound care continues to improve the wound, we will continue the route. If the MRI is positive for drainable abscess, I am going to have to drain the area and he is aware of this. I will order the MRI and I will continue to follow. Thank you for letting me participate in the care of this patient. Job#: [id number] DR MIRANDA
[2018-01-06 10:25] LABS: BILIRUBIN,URINE NEGATIVE (NEGATIVE); CLARITY,URINE CLEAR (CLEAR); COLOR,URINE AMBER (YELLOW); KETONES,URINE 2+ (NEGATIVE); LEUKOCYTE ESTERASE ,URINE NEGATIVE (NEGATIVE); NITRITE,URINE NEGATIVE (NEGATIVE); PROTEIN,URINE DIPSTICK NEGATIVE (NEGATIVE); URINE UROBILINOGEN 8 mg/dL (0.2 - 1)
[2018-01-06 10:35] LABS: EPITHELIAL CELLS,URINE RARE /LPF
--- NOTE | 2018-01-06 10:48 | Cardiology Report ---
DATE OF STUDY: January 05, 2018 DOPPLER SCAN OF LOWER EXTREMITY ARTERIES Segmental pressure measurements were not submitted for interpretation. Duplex scanning showed predominately triphasic and biphasic waveform except for the following areas: The right posterior tibial artery in the distal portion, the right anterior tibial artery in the distal portion, as well as the distal portion of the left posterior tibial artery. Velocity was elevated in the following areas: The proximal right posterior tibial artery and the distal right posterior tibial artery, as well as the distal left anterior tibial artery. The velocity range was in the range of 1.4 to 1.6 meters per second. CONCLUSION 1. Moderate stenosis involving the proximal right posterior tibial and the distal right posterior tibial arteries with velocity in range of 1.4 to 1.5 meters per second with diminished velocity in the very distal right posterior tibial artery that became monophasic. 2. Small vessel disease involving the right anterior tibial artery with the middistal portion showing monophasic waveform. 3. Moderate stenosis involving the distal left anterior tibial artery with velocity in range of 1.65 meters per second. 4. Small vessel disease involving the left posterior tibial artery with monophasic waveform. Job#: [id number] RI cc:JERI RODRIGUEZ MD
[2018-01-06] MEDS: MORPHINE SULFATE 2 MG/ML SYR IV PRN (11:31)
[2018-01-07] VITALS (8 sets, daily range): BP systolic 113–139; BP diastolic 60–81
[2018-01-07] MEDS: PIPER-TAZ 3.375 GM 50 ML IV SCH ×4 (00:30→18:39)
[2018-01-07] MEDS: VANCOMYCIN 1GM/NS 250 ML 250 ML IV SCH ×2 (03:00→16:13)
[2018-01-07 05:26] LABS: BASOPHILS # (AUTO) 0.1 (0.0-0.1); BASOPHILS % 0.5 % (0.0-1.0); EOSINOPHILS # (AUTO) 0.1 (0.0-0.4); EOSINOPHILS % 1.4 % (0.0-6.0); HEMATOCRIT 33.7 % (38.2-49.6); HEMOGLOBIN 11.4 g/dL (14.0-18.0); LYMPHOCYTES # (AUTO) 1.1 (1.0-3.2); LYMPHOCYTES % 10.9 % (18.0-39.1); MEAN CORPUSCULAR HEMOGLOBIN 31.3 pg (28-32); MEAN CORPUSCULAR HGB CONC 33.8 g/dL (31-35); MEAN CORPUSCULAR VOLUME 92.6 fL (81-99); MONOCYTES # (AUTO) 1.1 (0.2-0.8); MONOCYTES % 10.3 % (4.4-11.3); NEUTROPHILS # (AUTO) 7.9 (2.1-6.9); NEUTROPHILS % 76.3 % (38.7-80.0); PLATELET COUNT 200 x10e3/uL (140-360); RED BLOOD COUNT 3.64 x10e6/uL (4.3-5.7); RED CELL DISTRIBUTION WIDTH 13.7 % (11.7-14.4)
[2018-01-07 06:04] LABS: BLOOD UREA NITROGEN 6 mg/dL (7-26); BUN/CREATININE RATIO 8 (6-25); CALCIUM 8.5 mg/dL (8.4-10.2); CARBON DIOXIDE 25 mmol/L (22-29); CHLORIDE 94 mmol/L (98-107); EST GLOMERULAR FILTRATION RATE > 60 ML/MIN (60-); GLUCOSE 144 mg/dL (74-118); SODIUM 128 mmol/L (136-145)
[2018-01-07] MEDS: INSULIN LISPRO 100 UNIT/1 ML 3ML VIAL SQ SCH ×4 (07:30→20:15)
--- NOTE | 2018-01-07 08:36 | Diagnostic Imaging Report ---
MRI of the right forefoot without contrast. History: Cellulitis. Abscess. Infection of the great toe. Decreased range of motion. Pain. Technique: Multiplanar multisequence MRI of the right foot without contrast Comparison: Radiographs 12/07/2017 Findings: Prior partial amputation of the distal first toe. There is abnormal skin thickening and abnormal soft tissue edema about the first toe with skin ulceration dorsally. No well-formed drainable fluid collection/abscess is seen. There is associated cortical destruction and bone marrow edema involving the remainder of the first toe consistent with osteomyelitis. This is best seen on sagittal series 8 image 9 and 10. There is a small effusion at the first metatarsophalangeal joint which could be reactive. Scattered degenerative changes are seen. No acute fracture or dislocation. Mild diffuse muscle atrophy. No ligamentous or tendon tear. Impression: Findings consistent with cellulitis and osteomyelitis involving the remaining portion of the first toe. No well-formed drainable fluid collection/abscess is seen. The distal first metatarsal appears to be uninvolved at this time. Signed by: Dr. Wenceslao Watkins M.D. on 01/07/2018 8:32 AM
[2018-01-07] MEDS: METFORMIN HCL 850 MG TAB PO SCH (09:13)
[2018-01-07] MEDS: FUROSEMIDE 40 MG TAB PO SCH (09:14)
[2018-01-07] MEDS: NICOTINE 14 MG/EA PATCH TOP SCH (09:14)
[2018-01-07] MEDS: POTASSIUM CHLORIDE 20 MEQ TAB CR PO SCH (09:14)
[2018-01-07] MEDS: AMLODIPINE BESYLATE 5 MG TAB PO SCH ×2 (09:14→16:14)
[2018-01-08] VITALS (7 sets, daily range): BP systolic 119–141; BP diastolic 60–90
[2018-01-08] MEDS: PIPER-TAZ 3.375 GM 50 ML IV SCH ×4 (00:36→22:00)
[2018-01-08] MEDS: VANCOMYCIN 1GM/NS 250 ML 250 ML IV SCH ×2 (03:18→15:00)
[2018-01-08] MEDS: SODIUM CHLORIDE 0.9% 1000ML 1,000 ML IV SCH ×2 (03:18→21:40)
[2018-01-08] MEDS ORDERED: BACITRACIN 50,000 UNIT VIAL ONE (06:29)
[2018-01-08] MEDS ORDERED: BUPIVACAINE HCL 0.5% INJ 30 ML VIAL INJ ONE (06:29)
[2018-01-08] MEDS ORDERED: VANCOMYCIN HCL 1 GM VIAL ONE (06:59)
[2018-01-08] MEDS: INSULIN LISPRO 100 UNIT/1 ML 3ML VIAL SQ SCH ×4 (07:30→21:00)
[2018-01-08] MEDS: METFORMIN HCL 850 MG TAB PO SCH (08:50)
[2018-01-08] MEDS: NICOTINE 14 MG/EA PATCH TOP SCH (08:50)
[2018-01-08] MEDS: FUROSEMIDE 40 MG TAB PO SCH (08:50)
[2018-01-08] MEDS: POTASSIUM CHLORIDE 20 MEQ TAB CR PO SCH (08:50)
[2018-01-08] MEDS: AMLODIPINE BESYLATE 5 MG TAB PO SCH ×2 (08:50→16:20)
[2018-01-08] MEDS ORDERED: MAGNESIUM HYDROXIDE 30 ML UDC PO ONE (10:00)
[2018-01-08] MEDS ORDERED: SODIUM CHLORIDE 452MG TAB PO ONE (10:00)
[2018-01-08] MEDS: CHLORDIAZEPOXIDE HCL 25 MG CAP PO PRN (14:15)
[2018-01-08] MEDS ORDERED: LIDOCAINE HCL 2% LOCAL INJ 5 ML SDV VIAL INJ ONE (14:55)
[2018-01-08] MEDS ORDERED: PROPOFOL IV EMULSION 10 MG/ML 20 ML VIAL ONE (14:55)
[2018-01-08] MEDS ORDERED: DEXAMETHASONE SOD PHOS INJ 4 MG/ML VIAL ONE (14:55)
[2018-01-08] MEDS ORDERED: ONDANSETRON HCL INJ 2 MG/ML VIAL ONE (14:55)
[2018-01-08] MEDS ORDERED: SEVOFLURANE INHAL SOLN 250 ML PEN BTL ONE (14:55)
[2018-01-08] MEDS ORDERED: FENTANYL CITRATE/PF 100MCG/2 ML INJ ONE (19:27)
[2018-01-08] MEDS ORDERED: MIDAZOLAM HCL 2 MG/2 ML VIAL ONE (19:27)
[2018-01-09] VITALS (8 sets, daily range): BP systolic 122–149; BP diastolic 73–91
[2018-01-09] MEDS: MORPHINE SULFATE 2 MG/ML SYR IV PRN (02:10)
[2018-01-09 02:54] LABS: ANION GAP 11.9 mmol/L (8-16); BLOOD UREA NITROGEN 6 mg/dL (7-26); BUN/CREATININE RATIO 8 (6-25); CALCIUM 8.6 mg/dL (8.4-10.2); CARBON DIOXIDE 26 mmol/L (22-29); CHLORIDE 98 mmol/L (98-107); CREATININE, SERUM 0.73 mg/dL (0.72-1.25); EST GLOMERULAR FILTRATION RATE > 60 ML/MIN (60-); GLUCOSE 178 mg/dL (74-118); POTASSIUM 3.9 mmol/L (3.5-5.1); SODIUM 132 mmol/L (136-145)
[2018-01-09] MEDS: VANCOMYCIN 1GM/NS 250 ML 250 ML IV SCH ×2 (03:00→15:00)
[2018-01-09] MEDS: PIPER-TAZ 3.375 GM 50 ML IV SCH ×3 (06:00→21:53)
[2018-01-09] MEDS: INSULIN LISPRO 100 UNIT/1 ML 3ML VIAL SQ SCH ×5 (07:30→21:53)
[2018-01-09] MEDS: METFORMIN HCL 850 MG TAB PO SCH (08:00)
[2018-01-09] MEDS: NICOTINE 14 MG/EA PATCH TOP SCH (09:00)
[2018-01-09] MEDS: FUROSEMIDE 40 MG TAB PO SCH (09:00)
[2018-01-09] MEDS: AMLODIPINE BESYLATE 5 MG TAB PO SCH ×2 (09:00→17:00)
[2018-01-09] MEDS: POTASSIUM CHLORIDE 20 MEQ TAB CR PO SCH (11:11)
[2018-01-09] MEDS: SODIUM CHLORIDE 0.9% 1000ML 1,000 ML IV SCH (17:30)
[2018-01-10] VITALS (8 sets, daily range): BP systolic 118–155; BP diastolic 57–94
--- NOTE | 2018-01-10 00:35 | Operative Report ---
DATE OF PROCEDURE: January 08, 2018 CREDIT COLLECTION SPECIALIST: None PREOPERATIVE DIAGNOSES 1. Osteomyelitis, right proximal phalanx. 2. Diabetic foot ulcer with abscess of 1st intermetatarsal space. POSTOPERATIVE DIAGNOSES 1. Osteomyelitis, right proximal phalanx. 2. Diabetic foot ulcer with abscess of 1st intermetatarsal space. PROCEDURES 1. Incision and drainage with debridement down to bone. 2. Amputation of proximal phalanx, right foot. PATHOLOGY: Specimen sent for pathology. CULTURES: Deep cultures and sensitivity. ANESTHESIA: MAC anesthesia with local. HEMOSTASIS: None. ESTIMATED BLOOD LOSS: Less than 20 mL. MATERIALS: Antibiotic impregnated vancomycin beads. PROCEDURE IN DETAIL: Under mild sedation, the patient was brought to the operating room and placed on the operating table in the supine position. Following IV sedation, anesthesia was obtained with general anesthetic. At this point, the right foot was scrubbed, prepped and draped in the usual aseptic manner. It was then lowered to the table. Attention was then directed to the dorsal aspect of the right foot where a linear incision was made overlying the nonviable tissue of the proximal phalanx into the intermetatarsal space. Once this incision was made, large amount of purulence was expressed from the area. Deep cultures and sensitivities were taken. At this point, the area was evaluated for nonviable tissue. It was decided that the proximal phalanx would be removed. It was nonviable at this point. The joint was disarticulated at the metatarsophalangeal joint. The metatarsal was hard, and it did appear to be eroded. At this point, the ulcer seemed to track along the tunnels of the tendons. The extensor and the flexor tendon were then tenotomized and smoothed in a proximal fashion right past the metatarsophalangeal joint. All nonviable tissue was removed with exception of debridement with a 15 blade and a bone rongeur. Once all nonviable tissue was removed, the area was then flushed with copious amounts of copious irrigation. A 3000 mL bag with Bacitracin was used. All areas were then cauterized. The wound was then packed with antibiotic impregnated vancomycin beads. Betadine wet-to-dry dressing was applied. A compressive dressing was applied to the area. The patient tolerated the procedure and anesthesia well. The patient will be readmitted back into the hospital. A wound VAC will be applied later on today. The antibiotic beads will stay. The patient knows this is the first stage of this surgery. He will get any further surgery done in the future. He knows he is also a high risk for a more proximal amputation secondary to his comorbidities and his history of noncompliance. I am going to recommend possible IV antibiotics, either home or with an LTAC. He will do the wound VAC. I will continue to follow. He is to be strictly nonweightbearing to the right foot. Job#: [id number] ID
[2018-01-10] MEDS: VANCOMYCIN 1GM/NS 250 ML 250 ML IV SCH ×2 (03:57→16:15)
[2018-01-10] MEDS: PIPER-TAZ 3.375 GM 50 ML IV SCH ×3 (05:55→21:35)
[2018-01-10] MEDS ORDERED: FUROSEMIDE INJ 10 MG/ML 4 ML VIAL IV ONE (06:15)
--- NOTE | 2018-01-10 06:47 | Diagnostic Imaging Report ---
EXAMINATION: CHEST SINGLE (PORTABLE) INDICATION: Shortness of breath COMPARISON: None FINDINGS: TUBES and LINES: None. LUNGS: Lungs are not well inflated. There are bibasilar atelectasis. There is perihilar interstitial opacities, consistent with interstitial edema. PLEURA: No pleural effusion or pneumothorax. HEART AND MEDIASTINUM: Cardiac size is moderately enlarged. There are atherosclerotic calcifications within the aorta. BONES AND SOFT TISSUES: No acute osseous lesion. Soft tissues are unremarkable. UPPER ABDOMEN: No free air under the diaphragm. IMPRESSION: Moderate cardiogenic pulmonary edema. Signed by: Dr. Nikolai Lundberg M.D. on 01/10/2018 6:44 AM
[2018-01-10 07:01] LABS: BASOPHILS % 0.8 % (0.0-1.0); EOSINOPHILS # (AUTO) 0.3 (0.0-0.4); EOSINOPHILS % 6.5 % (0.0-6.0); HEMATOCRIT 34.7 % (38.2-49.6); HEMOGLOBIN 11.6 g/dL (14.0-18.0); LYMPHOCYTES # (AUTO) 0.8 (1.0-3.2); LYMPHOCYTES % 16.7 % (18.0-39.1); MEAN CORPUSCULAR HEMOGLOBIN 30.4 pg (28-32); MEAN CORPUSCULAR HGB CONC 33.4 g/dL (31-35); MEAN CORPUSCULAR VOLUME 91.1 fL (81-99); MONOCYTES # (AUTO) 0.4 (0.2-0.8); MONOCYTES % 7.9 % (4.4-11.3); NEUTROPHILS # (AUTO) 3.4 (2.1-6.9); NEUTROPHILS % 67.5 % (38.7-80.0); PLATELET COUNT 321 x10e3/uL (140-360); RED BLOOD COUNT 3.81 x10e6/uL (4.3-5.7); RED CELL DISTRIBUTION WIDTH 13.8 % (11.7-14.4)
[2018-01-10 07:04] LABS: ABG PCO2 32 mmHg (41-51); ABG PH 7.48 (7.31-7.41); ABG PO2 66 mmHg (80-105)
[2018-01-10 07:05] LABS: ABG HCO3 24 mmol/L (23-28)
[2018-01-10] MEDS: ENOXAPARIN SOD INJ 40 MG/0.4 ML SYR SC SCH (07:15)
[2018-01-10 07:16] LABS: ALANINE AMINOTRANSFERASE 26 IU/L (0-55); ALBUMIN 2.3 g/dL (3.5-5.0); ALBUMIN/GLOBULIN RATIO 0.5 (0.8-2.0); ALKALINE PHOSPHATASE 48 IU/L (40-150); ANION GAP 13.8 mmol/L (8-16); BLOOD UREA NITROGEN 5 mg/dL (7-26); BUN/CREATININE RATIO 7 (6-25); CALCIUM 8.6 mg/dL (8.4-10.2); CARBON DIOXIDE 25 mmol/L (22-29); CHLORIDE 97 mmol/L (98-107); CREATININE, SERUM 0.74 mg/dL (0.72-1.25); EST GLOMERULAR FILTRATION RATE > 60 ML/MIN (60-); GLUCOSE 160 mg/dL (74-118); POTASSIUM 3.8 mmol/L (3.5-5.1); SODIUM 132 mmol/L (136-145)
[2018-01-10] MEDS: INSULIN LISPRO 100 UNIT/1 ML 3ML VIAL SQ SCH ×4 (08:00→21:39)
[2018-01-10] MEDS: POTASSIUM CHLORIDE 20 MEQ TAB CR PO SCH (08:37)
[2018-01-10] MEDS: METFORMIN HCL 850 MG TAB PO SCH (08:37)
[2018-01-10] MEDS: AMLODIPINE BESYLATE 5 MG TAB PO SCH ×2 (08:37→17:11)
[2018-01-10] MEDS: NICOTINE 14 MG/EA PATCH TOP SCH (08:37)
[2018-01-10] MEDS: FUROSEMIDE 40 MG TAB PO SCH ×2 (08:37→18:15)
[2018-01-10] MEDS ORDERED: ENOXAPARIN SOD INJ 40 MG/0.4 ML SYR SC SCH (09:00)
[2018-01-10] MEDS ORDERED: FUROSEMIDE 40 MG TAB PO SCH (17:00)
[2018-01-10] MEDS: MORPHINE SULFATE 2 MG/ML SYR IV PRN (21:35)
[2018-01-11 00:01] VITALS: BP 125/67
[2018-01-11] MEDS: CHLORDIAZEPOXIDE HCL 25 MG CAP PO PRN (01:45)
[2018-01-11] MEDS: VANCOMYCIN 1GM/NS 250 ML 250 ML IV SCH ×2 (04:06→15:00)
[2018-01-11 05:39] VITALS: BP 122/69
[2018-01-11] MEDS: FUROSEMIDE 40 MG TAB PO SCH ×2 (05:55→18:00)
[2018-01-11] MEDS: PIPER-TAZ 3.375 GM 50 ML IV SCH ×3 (05:55→21:48)
[2018-01-11 06:02] LABS: ANION GAP 14.4 mmol/L (8-16); BLOOD UREA NITROGEN 6 mg/dL (7-26); BUN/CREATININE RATIO 8 (6-25); CALCIUM 8.7 mg/dL (8.4-10.2); CARBON DIOXIDE 25 mmol/L (22-29); CHLORIDE 98 mmol/L (98-107); CREATININE, SERUM 0.79 mg/dL (0.72-1.25); EST GLOMERULAR FILTRATION RATE > 60 ML/MIN (60-); GLUCOSE 200 mg/dL (74-118); POTASSIUM 3.4 mmol/L (3.5-5.1); SODIUM 134 mmol/L (136-145)
[2018-01-11] MEDS: INSULIN LISPRO 100 UNIT/1 ML 3ML VIAL SQ SCH ×4 (07:30→20:39)
[2018-01-11 07:55] VITALS: BP 127/75
[2018-01-11] MEDS ORDERED: POTASSIUM CHLORIDE 20 MEQ TAB CR PO STA (10:35)
[2018-01-11] MEDS: METFORMIN HCL 850 MG TAB PO SCH (10:56)
[2018-01-11] MEDS: NICOTINE 14 MG/EA PATCH TOP SCH (10:57)
[2018-01-11] MEDS: POTASSIUM CHLORIDE 20 MEQ TAB CR PO SCH (10:57)
[2018-01-11] MEDS: AMLODIPINE BESYLATE 5 MG TAB PO SCH ×2 (10:57→17:00)
[2018-01-11] MEDS: ENOXAPARIN SOD INJ 40 MG/0.4 ML SYR SC SCH (10:57)
[2018-01-11 12:00] VITALS: BP_SYST 124; BP_SYST 126; BP_DIAS 74
--- NOTE | 2018-01-11 12:45 | Progress Note ---
DATE: January 11, 2018 Patient was seen at bedside. The wound VAC is intact. The erythema and edema to the lower extremity has greatly decreased. The streaking erythema is no longer present. I discussed with him that his best bet for me is for him to go to an LTAC. He will be more compliant. He is trying to quit drinking and smoking and he is aware that he is at high risk for lower extremity amputation. At this point I am going to recommend LTAC, continue the wound VAC, he will continue the IV antibiotics. If he is not able to go to LTAC and cannot also go to SNF, then the other thing is to followup with me in the outpatient facility in the wound care center. He will continue to have home health and he will continue on the wound VAC. I will continue to follow. Job#: [id number] NIKOLAI
[2018-01-11 16:59] VITALS: BP_SYST 124; BP_SYST 126; BP_DIAS 74
[2018-01-11 20:24] VITALS: BP 131/83
[2018-01-11] MEDS: INSULIN DETEMIR 100 UNIT/ML PEN SQ SCH (20:39)
[2018-01-12] VITALS (7 sets, daily range): BP systolic 121–140; BP diastolic 70–93
[2018-01-12] MEDS: VANCOMYCIN 1GM/NS 250 ML 250 ML IV SCH ×2 (04:03→15:00)
[2018-01-12] MEDS: FUROSEMIDE 40 MG TAB PO SCH ×2 (05:52→17:35)
[2018-01-12] MEDS: PIPER-TAZ 3.375 GM 50 ML IV SCH ×2 (05:52→14:00)
[2018-01-12] MEDS: INSULIN LISPRO 100 UNIT/1 ML 3ML VIAL SQ SCH ×3 (07:30→21:21)
[2018-01-12] MEDS: METFORMIN HCL 850 MG TAB PO SCH (08:00)
[2018-01-12] MEDS: POTASSIUM CHLORIDE 20 MEQ TAB CR PO SCH (08:36)
[2018-01-12] MEDS: AMLODIPINE BESYLATE 5 MG TAB PO SCH ×2 (08:36→17:00)
[2018-01-12] MEDS: ENOXAPARIN SOD INJ 40 MG/0.4 ML SYR SC SCH (08:37)
[2018-01-12] MEDS: NICOTINE 14 MG/EA PATCH TOP SCH (08:37)
[2018-01-12] MEDS: CHLORDIAZEPOXIDE HCL 25 MG CAP PO PRN (16:35)
[2018-01-12] MEDS ORDERED: VANCOMYCIN HCL 1.25 GM in SODIUM CHLORIDE 0.9% 250ML 300 ML IV SCH (17:30)
[2018-01-12] MEDS: INSULIN DETEMIR 100 UNIT/ML PEN SQ SCH (21:21)
[2018-01-12] MEDS: VANCOMYCIN HCL 1.25 GM in SODIUM CHLORIDE 0.9% 250ML 300 ML IV SCH (22:18)
[2018-01-13 05:18] VITALS: BP 134/82
[2018-01-13] MEDS: FUROSEMIDE 40 MG TAB PO SCH ×2 (05:36→16:36)
[2018-01-13] MEDS: CEFEPIME HCL 2 GM VIAL IV SCH ×2 (05:36→16:36)
[2018-01-13 08:00] VITALS: BP 123/67
[2018-01-13] MEDS: ENOXAPARIN SOD INJ 40 MG/0.4 ML SYR SC SCH (08:54)
[2018-01-13] MEDS: POTASSIUM CHLORIDE 20 MEQ TAB CR PO SCH (08:54)
[2018-01-13] MEDS: NICOTINE 14 MG/EA PATCH TOP SCH (08:54)
[2018-01-13] MEDS: AMLODIPINE BESYLATE 5 MG TAB PO SCH ×2 (08:54→16:36)
[2018-01-13] MEDS: METFORMIN HCL 850 MG TAB PO SCH (08:54)
[2018-01-13] MEDS: INSULIN LISPRO 100 UNIT/1 ML 3ML VIAL SQ SCH ×4 (08:55→21:33)
[2018-01-13] MEDS ORDERED: POTASSIUM CHLORIDE 20 MEQ TAB CR PO ONE (10:00)
[2018-01-13] MEDS: VANCOMYCIN HCL 1.25 GM in SODIUM CHLORIDE 0.9% 250ML 300 ML IV SCH ×2 (11:00→21:00)
[2018-01-13 12:00] VITALS: BP 142/92
--- NOTE | 2018-01-13 13:57 | Progress Note ---
DATE: January 12, 2018 The patient was seen at bedside. He is in good spirits. We are waiting for an answer from insurance whether or not he is going to be able to transfer to LTAC. If the insurance denies LTAC, he wants to go home and follow up with me in the outpatient facility at wound care. I have discussed with him that if he is accepted into [facility], he has a better chance of healing the lower extremity secondary to his comorbidities. The erythema and edema are localizing. Capillary refill time is delayed in a type of foot. The wound VAC will be changed today by wound care. If he goes to [facility] for IV antibiotics and local wound care, he will continue with the wound VAC. He will follow up with me afterwards. He is on vanc and Zosyn, which is sensitive to the 3 organisms that he grew. He is to continue to be nonweightbearing. I discussed with him the importance of compliance. I will continue to follow. Job#: [id number] JO ANN
[2018-01-13 16:00] VITALS: BP 120/75
[2018-01-13] MEDS: CHLORDIAZEPOXIDE HCL 25 MG CAP PO PRN (18:42)
[2018-01-13 20:00] VITALS: BP 124/83
--- NOTE | 2018-01-13 21:07 | Diagnostic Imaging Report ---
EXAM: CHEST XRAY LINE PLACEMENT, AP 1 view INDICATION: PICC COMPARISON: AP view of the chest January 10, 2018 FINDINGS: LINES/TUBES: Interval placement of right approach PICC with tip at the expected location of the distal superior vena cava. LUNGS: Mild interstitial edema and bibasilar atelectasis. PLEURA: No effusions or pneumothorax. HEART AND MEDIASTINUM: Stable appearance. BONES AND SOFT TISSUES: No acute findings. IMPRESSION: Interval placement of right approach PICC with tip at the expected location of the distal superior vena cava. Signed by: Dr. Zaida Rodriguez M.D. on 01/13/2018 9:03 PM
[2018-01-13] MEDS: INSULIN DETEMIR 100 UNIT/ML PEN SQ SCH (21:33)
[2018-01-14] VITALS: BP 110/56
[2018-01-14 04:00] VITALS: BP 115/63
[2018-01-14] MEDS: CEFEPIME HCL 2 GM VIAL IV SCH (05:43)
[2018-01-14] MEDS: FUROSEMIDE 40 MG TAB PO SCH (06:05)
[2018-01-14 06:23] LABS: ANION GAP 13.7 mmol/L (8-16); BLOOD UREA NITROGEN 10 mg/dL (7-26); BUN/CREATININE RATIO 13 (6-25); CALCIUM 8.9 mg/dL (8.4-10.2); CARBON DIOXIDE 24 mmol/L (22-29); CHLORIDE 102 mmol/L (98-107); EST GLOMERULAR FILTRATION RATE > 60 ML/MIN (60-); GLUCOSE 179 mg/dL (74-118); POTASSIUM 3.7 mmol/L (3.5-5.1); SODIUM 136 mmol/L (136-145)
[2018-01-14] MEDS: INSULIN LISPRO 100 UNIT/1 ML 3ML VIAL SQ SCH ×2 (07:30→11:30)
[2018-01-14 08:00] VITALS: BP 148/88
[2018-01-14] MEDS: METFORMIN HCL 850 MG TAB PO SCH (08:00)
[2018-01-14] MEDS: NICOTINE 14 MG/EA PATCH TOP SCH (09:00)
[2018-01-14] MEDS: ENOXAPARIN SOD INJ 40 MG/0.4 ML SYR SC SCH (09:00)
[2018-01-14] MEDS: VANCOMYCIN HCL 1.25 GM in SODIUM CHLORIDE 0.9% 250ML 300 ML IV SCH (09:00)
[2018-01-14] MEDS: AMLODIPINE BESYLATE 5 MG TAB PO SCH (09:00)
[2018-01-14] MEDS: POTASSIUM CHLORIDE 20 MEQ TAB CR PO SCH (09:00)
[2018-01-14] MEDS ORDERED: CHLORDIAZEPOXID25 MG PO (10:10)
[2018-01-14 12:00] VITALS: BP 112/64
--- NOTE | 2018-01-14 15:45 | Discharge Summary ---
CLINICAL HISTORY: This is a 57-year-old white man admitted via the emergency room because of recurrent cellulitis and osteomyelitis. Please refer to my previous dictation concerning details of current illness, past medical history, personal and social history, family history, review of systems, physical examination, initial laboratory studies. HOSPITAL COURSE: The patient was seen in consultation by Dr. Arriaga, who had seen him before, and Dr. Mcclure, who also had seen him before. The patient was started on intravenous antibiotics. His wound was debrided. Initially we had planned for him to go to [facility] for the IV antibiotics. However, the patient did not qualify based on his insurance. Patient opted to be discharged home rather than to a SNF facility. Outpatient IV antibiotics were then arranged for him. He also has a wound pump. At the time of discharge, he was taking cefepime and vancomycin. Other medications at home are the same. He was using less insulin in the hospital, but he insisted on a higher dose at home, possibly because of dietary differences. He will follow up with his own hand fabric cutter, Dr. Yury Araujo, as well as a electronics utility worker, Dr. Arriaga. He was given activity, diet, medication and followup instructions. DISCHARGE DIAGNOSES: Same as on admission. LORENA CLINE MD Job#: [id number] EV cc:Renan DE LA VEGA DPM MAURICE E. AKUCHIE, MD
[2018-01-14 16:00] VITALS: BP 117/72
== END 2018-01-14 18:03 | disposition home health service (06) | DRG 617 ==
LOC: ER 14:17 → ERHOLD 17:24 → MED/SURG2 18:55
PROVIDERS: ADMIT Internal Medicine Cardiovascular Disease; ATTEND Internal Medicine Cardiovascular Disease
PROC: 0Y6M0Z9 Detachment at Right Foot, Partial 1st Ray, Open Approach (ICD-10-PCS; principal; 2018-01-04)
PROC: 02HV33Z Insertion of Infusion Device into Superior Vena Cava, Percutaneous Approach (ICD-10-PCS; 2018-01-13)
DX: E11.69 Type 2 diabetes mellitus with other specified complication (principal); L03.115 Cellulitis of right lower limb; I42.6 Alcoholic cardiomyopathy; L97.412 Non-pressure chronic ulcer of right heel and midfoot with fat layer exposed; M86.171 Other acute osteomyelitis, right ankle and foot; Z91.14 Patient's other noncompliance with medication regimen; I25.10 Atherosclerotic heart disease of native coronary artery without angina pectoris; E11.621 Type 2 diabetes mellitus with foot ulcer; E11.65 Type 2 diabetes mellitus with hyperglycemia; E11.51 Type 2 diabetes mellitus with diabetic peripheral angiopathy without gangrene; F10.20 Alcohol dependence, uncomplicated; Z89.411 Acquired absence of right great toe; I25.2 Old myocardial infarction; E78.5 Hyperlipidemia, unspecified; F17.210 Nicotine dependence, cigarettes, uncomplicated; I34.0 Nonrheumatic mitral (valve) insufficiency; Z98.61 Coronary angioplasty status; B96.89 Other specified bacterial agents as the cause of diseases classified elsewhere; I11.0 Hypertensive heart disease with heart failure; I50.9 Heart failure, unspecified; Z79.4 Long term (current) use of insulin; B95.2 Enterococcus as the cause of diseases classified elsewhere; Z16.24 Resistance to multiple antibiotics; B95.62 Methicillin resistant Staphylococcus aureus infection as the cause of diseases classified elsewhere
CPT/HCPCS: 36415; 36569; 36600; 71045; 71046; 80048; 80053; 80202; 81001; 82805; 82948; 83605; 85025; 87040; 87071; 87075; 87086; 87102; 87186; 87205; 87206; 88305; 88311; 93005; 93925; 96372; 97139; 97605; 97607; 99284; C1713; C1776; J0692; J1100; J1650; J1940; J2001; J2060; J2250; J2270; J2405; J2543; J3370; J7030; J7050

== ENCOUNTER → 2018-01-19 | Outpatient (CLI) | payer OTHER ==
[~2018-01-19] MED LIST changes: +CHLORDIAZEPOXID25 MG PO; +MINERAL OIL/PETROLAT/GLYCERI 6OZ BTL ONE
== END ==
LOC: EDSEX → WCC 07:12
PROVIDERS: ATTEND Family Medicine
DX: E11.621 Type 2 diabetes mellitus with foot ulcer (principal); L97.416 Non-pressure chronic ulcer of right heel and midfoot with bone involvement without evidence of necrosis; L97.516 Non-pressure chronic ulcer of other part of right foot with bone involvement without evidence of necrosis

== ENCOUNTER → 2018-01-20 | Outpatient (CLI) | payer OTHER ==
[~2018-01-20] MED LIST changes: +COLLAGENASE OINTMENT 30 GM TUBE ONE; -MINERAL OIL/PETROLAT/GLYCERI 6OZ BTL ONE
== END ==
LOC: WCC 13:32
PROVIDERS: ATTEND Podiatrist Foot & Ankle Surgery
DX: E11.621 Type 2 diabetes mellitus with foot ulcer (principal); L97.416 Non-pressure chronic ulcer of right heel and midfoot with bone involvement without evidence of necrosis; L97.516 Non-pressure chronic ulcer of other part of right foot with bone involvement without evidence of necrosis; I10 Essential (primary) hypertension; I50.9 Heart failure, unspecified; F10.20 Alcohol dependence, uncomplicated; Z01.810 Encounter for preprocedural cardiovascular examination

== ENCOUNTER → 2018-01-22 | Outpatient (CLI) | payer OTHER ==
[~2018-01-22] MED LIST changes: -COLLAGENASE OINTMENT 30 GM TUBE ONE
== END ==
LOC: WCC 10:08
PROVIDERS: ATTEND Podiatrist Foot & Ankle Surgery
DX: E11.621 Type 2 diabetes mellitus with foot ulcer (principal); L97.416 Non-pressure chronic ulcer of right heel and midfoot with bone involvement without evidence of necrosis; L97.516 Non-pressure chronic ulcer of other part of right foot with bone involvement without evidence of necrosis; I10 Essential (primary) hypertension; I50.9 Heart failure, unspecified; F10.20 Alcohol dependence, uncomplicated; Z01.810 Encounter for preprocedural cardiovascular examination

== ENCOUNTER → 2018-01-22 | Outpatient (CLI) | payer OTHER ==
--- NOTE | 2018-01-23 13:23 | Cardiology Report ---
DATE OF STUDY: ECHOCARDIOGRAM M-MODE: Top normal left ventricular size. Diminished left ventricular contractility. Left ventricular hypertrophy. Aortic sclerosis. Normal mitral and tricuspid valves. No pericardial effusion. SECTOR SCAN: Borderline enlarged left ventricle with diminished left ventricular contractility. Ejection fraction is approximately 25%. [place] is dyskinetic. Aortic valve sclerotic. Mitral and tricuspid valves are normal. There is no pericardial effusion. CARDIAC DOPPLER STUDY WITH COLOR: No significant aortic regurgitation or stenosis. No significant tricuspid regurgitation or stenosis. CONCLUSION 1. Left ventricular hypertrophy with borderline dilated left ventricle with severely diminished left ventricular contractility. Estimated ejection fraction of 25%. The left ventricular apex is dyskinetic. 2. Top normal aortic root size measuring 3.7 cm with mild aortic sclerosis without stenosis and without aortic regurgitation. 3. Top normal aortic root size. Top normal left atrial size. Job#: [id number] RI cc:DEANNE MIRANDA MD
== END ==
LOC: RAD 10:36
PROVIDERS: ATTEND Family Medicine
DX: Z01.810 Encounter for preprocedural cardiovascular examination (principal)
CPT/HCPCS: 93306

== ENCOUNTER → 2018-01-27 | Outpatient (CLI) | payer OTHER | LOC: WCC 14:55 | PROVIDERS: ATTEND Podiatrist Foot & Ankle Surgery | DX: E11.621 Type 2 diabetes mellitus with foot ulcer (principal); L97.516 Non-pressure chronic ulcer of other part of right foot with bone involvement without evidence of necrosis; L97.416 Non-pressure chronic ulcer of right heel and midfoot with bone involvement without evidence of necrosis; I50.9 Heart failure, unspecified; I10 Essential (primary) hypertension; F10.20 Alcohol dependence, uncomplicated; Z01.810 Encounter for preprocedural cardiovascular examination ==

== ENCOUNTER → 2018-01-29 | Outpatient (CLI) | payer OTHER | LOC: WCC 09:10 | PROVIDERS: ATTEND Internal Medicine Infectious Disease | DX: E11.621 Type 2 diabetes mellitus with foot ulcer (principal); L97.416 Non-pressure chronic ulcer of right heel and midfoot with bone involvement without evidence of necrosis; L97.516 Non-pressure chronic ulcer of other part of right foot with bone involvement without evidence of necrosis; I10 Essential (primary) hypertension; I50.9 Heart failure, unspecified; F10.20 Alcohol dependence, uncomplicated; Z01.810 Encounter for preprocedural cardiovascular examination ==

== ENCOUNTER → 2018-02-03 | Outpatient (CLI) | payer OTHER | LOC: WCC 15:40 | PROVIDERS: ATTEND Podiatrist Foot & Ankle Surgery | DX: E11.621 Type 2 diabetes mellitus with foot ulcer (principal); L97.416 Non-pressure chronic ulcer of right heel and midfoot with bone involvement without evidence of necrosis; L97.516 Non-pressure chronic ulcer of other part of right foot with bone involvement without evidence of necrosis; I10 Essential (primary) hypertension; I50.9 Heart failure, unspecified; F10.20 Alcohol dependence, uncomplicated; Z01.810 Encounter for preprocedural cardiovascular examination ==

== ENCOUNTER → 2018-02-05 | Outpatient (CLI) | payer OTHER | LOC: EDSEX → WCC 13:00 | PROVIDERS: ATTEND Internal Medicine Infectious Disease | DX: E11.621 Type 2 diabetes mellitus with foot ulcer (principal); L97.516 Non-pressure chronic ulcer of other part of right foot with bone involvement without evidence of necrosis; L97.416 Non-pressure chronic ulcer of right heel and midfoot with bone involvement without evidence of necrosis; I50.9 Heart failure, unspecified; I10 Essential (primary) hypertension; F10.20 Alcohol dependence, uncomplicated; Z01.810 Encounter for preprocedural cardiovascular examination ==

== ENCOUNTER → 2018-02-10 | Outpatient (CLI) | payer OTHER | LOC: WCC 12:39 | PROVIDERS: ATTEND Family Medicine Adult Medicine | DX: E11.621 Type 2 diabetes mellitus with foot ulcer (principal); L97.516 Non-pressure chronic ulcer of other part of right foot with bone involvement without evidence of necrosis; L97.416 Non-pressure chronic ulcer of right heel and midfoot with bone involvement without evidence of necrosis; I10 Essential (primary) hypertension; I50.9 Heart failure, unspecified; F10.20 Alcohol dependence, uncomplicated; Z01.810 Encounter for preprocedural cardiovascular examination ==

== ENCOUNTER → 2018-02-12 | Outpatient (CLI) | payer OTHER | LOC: WCC 15:27 | PROVIDERS: ATTEND Podiatrist Foot & Ankle Surgery | DX: E11.621 Type 2 diabetes mellitus with foot ulcer (principal); L97.516 Non-pressure chronic ulcer of other part of right foot with bone involvement without evidence of necrosis; L97.416 Non-pressure chronic ulcer of right heel and midfoot with bone involvement without evidence of necrosis; I50.9 Heart failure, unspecified; I10 Essential (primary) hypertension; F10.20 Alcohol dependence, uncomplicated; Z01.810 Encounter for preprocedural cardiovascular examination ==

== ENCOUNTER → 2018-02-17 | Outpatient (CLI) | payer OTHER | LOC: EDSEX → WCC 15:03 | PROVIDERS: ATTEND Podiatrist Foot & Ankle Surgery | DX: E11.621 Type 2 diabetes mellitus with foot ulcer (principal); L97.516 Non-pressure chronic ulcer of other part of right foot with bone involvement without evidence of necrosis; I10 Essential (primary) hypertension; I50.9 Heart failure, unspecified; F10.20 Alcohol dependence, uncomplicated; Z01.810 Encounter for preprocedural cardiovascular examination ==

== ENCOUNTER → 2018-02-19 | Outpatient (CLI) | payer OTHER | LOC: WCC 09:11 | PROVIDERS: ATTEND Family Medicine | DX: E11.621 Type 2 diabetes mellitus with foot ulcer (principal); L97.516 Non-pressure chronic ulcer of other part of right foot with bone involvement without evidence of necrosis; I10 Essential (primary) hypertension; I50.9 Heart failure, unspecified; F10.20 Alcohol dependence, uncomplicated; Z01.810 Encounter for preprocedural cardiovascular examination ==

== ENCOUNTER → 2018-02-24 | Outpatient (CLI) | payer OTHER | LOC: WCC 13:45 | PROVIDERS: ATTEND Podiatrist Foot & Ankle Surgery | DX: E11.621 Type 2 diabetes mellitus with foot ulcer (principal); L97.516 Non-pressure chronic ulcer of other part of right foot with bone involvement without evidence of necrosis; I10 Essential (primary) hypertension; F10.20 Alcohol dependence, uncomplicated; I50.9 Heart failure, unspecified; Z01.810 Encounter for preprocedural cardiovascular examination | CPT/HCPCS: 15275; Q4121 ==

== ENCOUNTER → 2018-03-03 | Outpatient (CLI) | payer OTHER | LOC: WCC 13:11 | PROVIDERS: ATTEND Podiatrist Foot & Ankle Surgery | DX: E11.621 Type 2 diabetes mellitus with foot ulcer (principal); L97.516 Non-pressure chronic ulcer of other part of right foot with bone involvement without evidence of necrosis; F10.20 Alcohol dependence, uncomplicated; I10 Essential (primary) hypertension; I50.9 Heart failure, unspecified; Z01.810 Encounter for preprocedural cardiovascular examination ==

== ENCOUNTER → 2018-03-05 | Outpatient (CLI) | payer OTHER | LOC: WCC 10:14 | PROVIDERS: ATTEND Family Medicine | DX: E11.621 Type 2 diabetes mellitus with foot ulcer (principal); L97.516 Non-pressure chronic ulcer of other part of right foot with bone involvement without evidence of necrosis; I10 Essential (primary) hypertension; I50.9 Heart failure, unspecified; F10.20 Alcohol dependence, uncomplicated; Z01.810 Encounter for preprocedural cardiovascular examination ==

== ENCOUNTER → 2018-03-10 | Outpatient (CLI) | payer OTHER | LOC: WCC 12:34 | PROVIDERS: ATTEND Podiatrist Foot & Ankle Surgery | DX: E11.621 Type 2 diabetes mellitus with foot ulcer (principal); L97.516 Non-pressure chronic ulcer of other part of right foot with bone involvement without evidence of necrosis; I10 Essential (primary) hypertension; I50.9 Heart failure, unspecified; F10.20 Alcohol dependence, uncomplicated; Z01.810 Encounter for preprocedural cardiovascular examination ==

== ENCOUNTER → 2018-03-17 | Outpatient (CLI) | payer OTHER | LOC: WCC 15:09 | PROVIDERS: ATTEND Podiatrist Foot & Ankle Surgery | DX: E11.621 Type 2 diabetes mellitus with foot ulcer (principal); L97.516 Non-pressure chronic ulcer of other part of right foot with bone involvement without evidence of necrosis; F10.20 Alcohol dependence, uncomplicated; I10 Essential (primary) hypertension; I50.9 Heart failure, unspecified; Z01.810 Encounter for preprocedural cardiovascular examination ==

== ENCOUNTER → 2018-03-24 | Outpatient (CLI) | payer OTHER | LOC: WCC 16:09 | PROVIDERS: ATTEND Family Medicine | DX: E11.621 Type 2 diabetes mellitus with foot ulcer (principal); L97.516 Non-pressure chronic ulcer of other part of right foot with bone involvement without evidence of necrosis; I10 Essential (primary) hypertension; I50.9 Heart failure, unspecified; F10.20 Alcohol dependence, uncomplicated; Z01.810 Encounter for preprocedural cardiovascular examination | CPT/HCPCS: 87071; 87075; 87186; 87205 ==

== ENCOUNTER → 2018-03-31 | Outpatient (CLI) | payer OTHER | LOC: WCC 13:46 | PROVIDERS: ATTEND Family Medicine | DX: T87.43 Infection of amputation stump, right lower extremity (principal); E11.621 Type 2 diabetes mellitus with foot ulcer; L97.516 Non-pressure chronic ulcer of other part of right foot with bone involvement without evidence of necrosis; I10 Essential (primary) hypertension; I50.9 Heart failure, unspecified; F10.20 Alcohol dependence, uncomplicated; Z01.810 Encounter for preprocedural cardiovascular examination ==